=== PATIENT | female | born 1960 | race African-American/Black ===

== ENCOUNTER 2016-12-27 14:08 | Emergency (ER) | payer MEDICAID ==
[~2016-12-27] VITALS: Ht 167.6 cm; Wt 67.6 kg
[~2016-12-27 14:08] MED LIST: ADVAIR 100-501 EACH INH; ALBUTEROL SULF8.5 GM INH; AUGMENTIN 500M500 MG PO; AUGMENTIN 875-1 EAC1 ORAL; BENADRYL25 MG ORAL; CEPHALEXIN500 MG ORAL; CLARITIN-D 241 EACH PO; CORTIZONE 1028 GM TP; IBUPROFEN600 MG ORAL; LEVAQUIN500 MG ORAL; LEVAQUIN750 MG ORAL; NKM; NORCO 5-325 TA1 EACH ORAL; PREDNISONE20 MG ORAL; ZYRTEC-D TABLE1 EACH ORAL
--- NOTE | 2016-12-27 14:38 | Emergency Room Report ---
History of Present Illness General Chief Complaint: Pain Source: Patient Present Illness HPI Patient complains of possible sinusitis for 1 month. Associated symptoms includes sinus pressure, sinus pain, nasal congestion, and ear pain. States that he's taking Claritin D with some relief, but states that her symptoms have intensified over the past one week.States sxs are worse with bending forward and with changes in altitude. Denies any current n/v/f/c/d, abd pain, back pain , neck pain, photophobia, phonophobia, CP, SOB or headache. Allergies: Coded Allergies: IOPAMIDOL (Verified Allergy, Intermediate, facial rash, 08/24/16) Isovue 300, 100ml received for CT on 08/19/16 Patient History Past Medical History: see triage record Pertinent Family History: none Immunizations: UTD Reviewed Nursing Documentation: PMH: Agreed, PSxH: Agreed Nursing Documentation-PMH Past Medical History: No Stated History Hx Asthma: Yes - bronchitis Hx COPD: No Review of Systems All Other Systems: negative except mentioned in HPI Physical Exam Vital Signs Date Time Temp Pulse Resp B/P Pulse Ox O2 Delivery O2 Flow Rate FiO2 12/27/16 14:25 97.9 92 16 129/89 97 Room Air Sp02 EP Interpretation: reviewed, normal General Appearance: no apparent distress, alert, GCS 15, non-toxic Head: normocephalic, atraumatic Eyes: bilateral eye PERRL, bilateral eye normal inspection ENT: hearing grossly normal, normal pharynx, no angioedema, normal voice, TMs + canals normal, other - + Facial tenderness to percussion, Turbinates boggy and swollen Neck: full range of motion, supple/symm/no masses Respiratory: chest non-tender, lungs clear, normal breath sounds, speaking full sentences Cardiovascular #1: regular rate, rhythm, no edema Neurologic: alert, oriented x3, responsive, motor strength/tone normal, sensory intact, speech normal Psychiatric: judgement/insight normal, memory normal, mood/affect normal, no suicidal/homicidal ideation Skin: normal color, no rash, warm/dry, well hydrated Lymphatic: no adenopathy Medical Decision Making PA Attestation Dr. Antonio is my supervising physician with whom patient management has been discussed with. Diagnostic Impression: Primary Impression: Sinusitis Qualified Codes: J01.01 - Acute recurrent maxillary sinusitis ER Course Pt. presents to the ED c/o of Sinus congestion Ddx considered but are not limited to allergies, sinusitis, bronchitis, pneumonia, viral upper respiratory tract infection Vital signs: are WNL, pt. is afebrile H&PE are most consistent with Sinusitis ORDERS: none required at this time, the diagnosis is clinical ED INTERVENTIONS: None required at this time. DISCHARGE: At this time pt. is stable for d/c to home. Will provide printed patient care instructions, and any necessary prescriptions. Care plan and follow up instructions have been discussed with the patient prior to discharge. Last Vital Signs Date Time Temp Pulse Resp B/P Pulse Ox O2 Delivery O2 Flow Rate FiO2 12/27/16 14:25 97.9 92 16 129/89 97 Room Air Disposition: HOME, SELF-CARE Condition: Stable Scripts Fluticasone Propionate (Flonase Allergy Relief) 9.9 Ml Lasara.susp 2 SPRAYS NS DAILY for 7 Days, #10 ML Prov: SABRY,TAMEEM P.A. 12/27/16 Cetirizine Hcl* (ZYRTEC*) 10 Mg Tablet 10 MG ORAL DAILY, #14 TAB 0 Refills Prov: SABRY,TAMEEM P.A. 12/27/16 Prednisone* (PREDNISONE*) 20 Mg Tablet 40 MG ORAL DAILY, #5 TAB Prov: SABRY,TAMEEM P.A. 12/27/16 Amoxicillin/Potassium Clav 875-125* (AUGMENTIN 875-125 TABLET*) 1 Each Tablet 1 TAB ORAL TWICE A DAY, #20 TAB Prov: SABRY,TAMEEM P.A. 12/27/16 Patient Instructions: Sinusitis, Adult Additional Instructions: Take medication as directed. Patient advised that most of the time, symptoms start to improve in 7 to 10 days. Patient should return to clinic if their symptoms last more than 10 days, or if your symptoms get better at first but then get worse. Patient instructed to take an [id number] pain reliever to reduce the pain, and to rinse your nose and sinuses with salt water a few times a day. Patient advised to NOT take an antihistamine for sinusitis. Go to the ER if you experience any: fever higher than 102.5, sudden and severe pain in the face and head, trouble seeing or seeing double, trouble thinking clearly, swelling or redness around one or both eyes, or trouble breathing or a stiff neck. JOHN REED Dec 27, 2016 14:38
[2016-12-27 14:40] VITALS: BP 129/89
[2016-12-27] MEDS ORDERED: FLONASE ALLERG9.9 ML NS (14:40)
[2016-12-27] MEDS ORDERED: ZYRTEC10 MG ORAL (14:40)
[2016-12-27] MEDS ORDERED: PREDNISONE20 MG ORAL (14:40)
[2016-12-27] MEDS ORDERED: AUGMENTIN 875-1 EAC1 ORAL (14:40)
[2016-12-27 14:50] VITALS: BP 129/89
== END 2016-12-27 14:50 | disposition home or self-care (01) ==
LOC: EMR 14:48
DX: J01.01 Acute recurrent maxillary sinusitis (principal); Z88.8 Allergy status to other drugs, medicaments and biological substances
CPT/HCPCS: 99284

== ENCOUNTER 2017-03-16 15:21 | Emergency (ER) | payer MEDICAID ==
[~2017-03-16] VITALS: Ht 170.2 cm; Wt 71.7 kg
[~2017-03-16 15:21] MED LIST changes: +FLONASE ALLERG9.9 ML NS; +ZYRTEC10 MG ORAL
[2017-03-16] MEDS ORDERED: Ipratropium 0.02% Inh Soln 2.5ml UD HHN ONE (15:45)
[2017-03-16] MEDS ORDERED: PredniSONE 20mg tab ORAL ONE (15:45)
[2017-03-16] MEDS ORDERED: Albuterol ud Inhalation HHN ONE (15:45)
[2017-03-16 16:00] VITALS: BP 143/84
--- NOTE | 2017-03-16 16:14 | Diagnostic Imaging Report ---
Indication: Chest Pain Comparison: 9612 A single view chest radiograph was obtained. Findings: Cardiomediastinal appearance is within normal limits for age. Pulmonary vascularity is appropriate. The diaphragmatic contour is smooth and costophrenic angles are sharp. No pleural effusions are identified. The bones are osteopenic. Impression: No acute findings
[2017-03-16] MEDS ORDERED: PREDNISONE20 MG ORAL (16:25)
[2017-03-16] MEDS ORDERED: ALBUTEROL SULF8.5 GM INH (16:25)
[2017-03-16 16:32] VITALS: BP 143/84
--- NOTE | 2017-03-16 17:26 | Emergency Room Report ---
History of Present Illness General Chief Complaint: Dyspnea/Respdistress Source: Patient Present Illness HPI 56-year-old female presents ED complaining of shortness of breath and wheezing x2 weeks. Patient states that she was recent diagnosed with adult asthma. Patient states she does not have an inhaler. Denies any fevers or chills. Denies cough. Denies chest pain. Ice to contacts or recent travel. No other relieving factors. Denies any other associated symptoms Allergies: Coded Allergies: IOPAMIDOL (Verified Allergy, Intermediate, facial rash, 08/24/16) Isovue 300, 100ml received for CT on 08/19/16 Patient History Past Medical History: asthma Past Surgical History: none Pertinent Family History: none Social History: Denies: alcohol use, drug use, smoking Last Menstrual Period: na Now: No Immunizations: UTD Reviewed Nursing Documentation: PMH: Agreed, PSxH: Agreed Nursing Documentation-PMH Past Medical History: No History, Except For Hx Asthma: Yes - bronchitis Hx COPD: No Review of Systems All Other Systems: negative except mentioned in HPI Physical Exam Vital Signs Date Time Temp Pulse Resp B/P Pulse Ox O2 Delivery O2 Flow Rate FiO2 03/16/17 15:24 97.9 86 18 132/92 98 Room Air Sp02 EP Interpretation: reviewed, normal General Appearance: no apparent distress, alert, GCS 15, non-toxic Head: normocephalic, atraumatic Eyes: bilateral eye PERRL, bilateral eye normal inspection ENT: hearing grossly normal, normal pharynx, no angioedema, normal voice Neck: full range of motion, supple/symm/no masses Respiratory: chest non-tender, normal breath sounds, speaking full sentences, wheezing Cardiovascular #1: regular rate, rhythm, no edema Cardiovascular #2: 2+ carotid (R), 2+ carotid (L), 2+ radial (R), 2+ radial (L) , 2+ dorsalis pedis (R), 2+ dorsalis pedis (L) Gastrointestinal: normal bowel sounds, non tender, soft, non-distended, no guarding, no rebound Rectal: deferred Genitourinary: normal inspection, no CVA tenderness Musculoskeletal: back normal, gait/station normal, normal range of motion, non- tender Neurologic: alert, oriented x3, responsive, motor strength/tone normal, sensory intact, speech normal Psychiatric: judgement/insight normal, memory normal, mood/affect normal, no suicidal/homicidal ideation Reflexes: 3+ bicep (R), 3+ bicep (L), 3+ tricep (R), 3+ tricep (L), 3+ knee (R) , 3+ knee (L) Skin: normal color, no rash, warm/dry, well hydrated Lymphatic: no adenopathy Medical Decision Making Diagnostic Impression: Primary Impression: Asthma exacerbation ER Course Hospital Course 56-year-old female presents to ED complaining of wheezing. Differential diagnoses include: URI, bronchitis, asthma/COPD, pneumonia Clinical course Patient placed on stretcher. After initial history and physical I ordered CXR and nebulizer treatment. Chest x-ray unremarkable Upon reassessment patient states wheezing has improved Diagnosis - asthma exacerbation Stable and discharged home with prescriptions for Rx prednisone, albuterol. Instructed to followup with PMD. Return to ED if symptoms recur or worsen Chest X-Ray Diagnostic Results EP Interpretation: No Findings: no consolidation, no effusion, no pneumothorax, no acute cardiopulmonary disease Number of Views: 1 Last Vital Signs Date Time Temp Pulse Resp B/P Pulse Ox O2 Delivery O2 Flow Rate FiO2 03/16/17 16:10 81 20 100 Room Air 03/16/17 16:00 143/84 03/16/17 15:24 97.9 Status: improved Disposition: HOME, SELF-CARE Condition: Stable Scripts Albuterol Sulfate* (ALBUTEROL SULFATE MDI*) 8.5 Gm Hfa.aer.ad 2 PUFF INH Q4H, #1 INH 0 Refills Prov: AIDA KELLEY M.D. 03/16/17 Prednisone* (PREDNISONE*) 20 Mg Tablet 40 MG ORAL DAILY, #10 TAB Prov: AIDA KELLEY M.D. 03/16/17 Referrals: [facility] (PCP) Patient Instructions: Asthma, Adult AIDA KELLEY M.D. Mar 16, 2017 17:26
== END 2017-03-16 16:32 | disposition home or self-care (01) ==
LOC: EMR 16:01
DX: J45.901 Unspecified asthma with (acute) exacerbation (principal); Z88.8 Allergy status to other drugs, medicaments and biological substances
CPT/HCPCS: 71010; 94640; 99284

== ENCOUNTER 2017-05-31 12:34 | Emergency (ER) | payer MEDICAID ==
[~2017-05-31] VITALS: Ht 170.2 cm; Wt 68.0 kg
[2017-05-31] MEDS ORDERED: ALBUTEROL SULF8.5 GM INH (13:41)
[2017-05-31] MEDS ORDERED: PREDNISONE20 MG ORAL (13:41)
--- NOTE | 2017-05-31 13:44 | Emergency Room Report ---
History of Present Illness General Chief Complaint: Upper Respiratory Illness Source: Patient Present Illness HPI 56YOF with "1 month of chest tightness." Home MDI not working. Not currently on steroids. C/o productive cough Denies fever/chills, SOB, chest pain, abd pain, headache Also on Advair Allergies: Coded Allergies: No Known Allergies (Unverified , 05/31/17) Patient History Past Medical History: asthma Past Surgical History: none Pertinent Family History: none Social History: Denies: alcohol use, drug use, smoking Last Menstrual Period: na Now: No Immunizations: UTD Reviewed Nursing Documentation: PMH: Agreed, PSxH: Agreed Nursing Documentation-PMH Past Medical History: No History, Except For Hx Asthma: Yes Hx COPD: No Review of Systems All Other Systems: negative except mentioned in HPI Physical Exam Vital Signs Date Time Temp Pulse Resp B/P Pulse Ox O2 Delivery O2 Flow Rate FiO2 05/31/17 12:50 98.1 91 20 126/73 95 Room Air Sp02 EP Interpretation: reviewed, normal General Appearance: normal inspection, well appearing, no apparent distress, alert, GCS 15, non-toxic Head: normocephalic, atraumatic Eyes: bilateral eye EOMI, bilateral eye PERRL ENT: normal ENT inspection, hearing grossly normal, normal voice Neck: normal inspection, full range of motion, supple, no bony tend Respiratory: normal inspection, no rhonchi, no respiratory distress, no retraction, no accessory muscle use, speaking full sentences, expiration Cardiovascular #1: regular rate, rhythm, no edema Gastrointestinal: normal inspection, normal bowel sounds, non tender, soft, no guarding, no hernia Genitourinary: no CVA tenderness Musculoskeletal: normal inspection, back normal, normal range of motion, Harish' s Sign negative Neurologic: normal inspection, alert, oriented x3, responsive, sports broadcaster III-XII nml as tested, motor strength/tone normal, speech normal Psychiatric: normal inspection, judgement/insight normal, mood/affect normal Skin: normal inspection, normal color, no rash Medical Decision Making Diagnostic Impression: Primary Impression: Asthma exacerbation ER Course 56YOF with acute asthma exacerbation VSS. Afebrile CXR: negative for PNA Gave nebs, prednisone here Rx MDI refilled, prednisone PMD followup [place] home Chest X-Ray Diagnostic Results Chest X-Ray Diagnostic Results : Chest X-Ray Ordered: Yes # of Views/Limited/Complete: 1 View Indication: Shortness of Breath EP Interpretation: Yes Interpretation: no consolidation, no effusion, no pneumothorax, no acute cardiopulmonary disease Impression: No acute disease Interpreting ER Provider: Dr Osmani Pulido MD Last Vital Signs Date Time Temp Pulse Resp B/P Pulse Ox O2 Delivery O2 Flow Rate FiO2 05/31/17 12:50 98.1 91 20 126/73 95 Room Air Status: improved Disposition: HOME, SELF-CARE Condition: Improved Scripts Prednisone* (PREDNISONE*) 20 Mg Tablet 20 MG ORAL BID, #6 TAB 0 Refills Prov: OSMANI PULIDO M.D. 05/31/17 Albuterol Sulfate* (ALBUTEROL SULFATE MDI*) 8.5 Gm Hfa.aer.ad 2 PUFF INH Q4H, #1 INH Take 2 puffs every 4 to 6 hours as needed for wheezing or shortness of breath. Prov: OSMANI PULIDO M.D. 05/31/17 Referrals: [facility] (PCP) Patient Instructions: Asthma, Adult, [id number] OSMANI PULIDO M.D. May 31, 2017 13:44
[2017-05-31] MEDS ORDERED: Albuterol ud Inhalation HHN ONE (13:45)
[2017-05-31] MEDS ORDERED: PredniSONE 20mg tab ORAL ONE (13:45)
[2017-05-31 14:30] VITALS: BP 134/76
--- NOTE | 2017-05-31 14:41 | Diagnostic Imaging Report ---
Indication: Dyspnea Comparison: 03/16/17 A single view chest radiograph was obtained. Findings: Cardiomediastinal appearance is within normal limits for age. Pulmonary vascularity is appropriate. The diaphragmatic contour is smooth and costophrenic angles are sharp. No pleural effusions are identified. The bones are osteopenic. Impression: No acute findings
[2017-05-31 14:51] VITALS: BP 130/83
== END 2017-05-31 16:42 | disposition home or self-care (01) ==
LOC: EMR 13:08
DX: J45.901 Unspecified asthma with (acute) exacerbation (principal)
CPT/HCPCS: 71010; 94640; 94664; 99284

== ENCOUNTER 2017-07-09 12:08 | Emergency (ER) | payer MEDICAID ==
[~2017-07-09] VITALS: Ht 162.6 cm; Wt 63.5 kg
[2017-07-09 12:32] VITALS: BP 117/88
[2017-07-09] MEDS ORDERED: Ipratropium 0.02% Inh Soln 2.5ml UD HHN ONE (12:45)
[2017-07-09] MEDS ORDERED: Albuterol ud Inhalation HHN ONE (12:45)
--- NOTE | 2017-07-09 13:09 | Emergency Room Report ---
History of Present Illness General Chief Complaint: Flu Like Symptoms Source: Patient Present Illness [facility] The patient is a 56-year-old male presenting for cough. The patient was seen in this emergency department 2 weeks prior for the same complaint which has not been improving. She states that she has had this cough now for 6 weeks with no change. Pain is a 10 out of 10 dull ache to the head and chest which occurs with coughing. She has been using albuterol at home which has not been helping. She has not tried any other medications including cough medication. She denies any known sick contacts or recent travel. She admits to subjective fevers and chills She denies any other symptoms including nausea, vomiting, shortness of breath, abd pain, rash Allergies: Coded Allergies: No Known Allergies (Unverified , 05/31/17) Patient History Past Medical History: see triage record Pertinent Family History: none Reviewed Nursing Documentation: PMH: Agreed, PSxH: Agreed Nursing Documentation-PMH Hx Asthma: Yes Hx COPD: No Review of Systems All Other Systems: negative except mentioned in HPI Physical Exam Vital Signs Date Time Temp Pulse Resp B/P (MAP) Pulse Ox O2 Delivery O2 Flow Rate FiO2 07/09/17 12:27 98.2 87 20 117/88 99 Room Air Sp02 EP Interpretation: reviewed, normal General Appearance: no apparent distress, alert, GCS 15, non-toxic Head: normocephalic, atraumatic Eyes: bilateral eye normal inspection, bilateral eye PERRL ENT: hearing grossly normal, normal pharynx, no angioedema, normal voice Neck: full range of motion, supple/symm/no masses Respiratory: chest non-tender, lungs clear, no respiratory distress, no accessory muscle use, speaking full sentences, wheezing - diffuse Cardiovascular #1: regular rate, rhythm, no edema Genitourinary: normal inspection, no CVA tenderness Musculoskeletal: back normal, gait/station normal, normal range of motion, non- tender Neurologic: alert, oriented x3, responsive, motor strength/tone normal, sensory intact, speech normal Psychiatric: judgement/insight normal, memory normal, mood/affect normal, no suicidal/homicidal ideation Skin: normal color, no rash, warm/dry, well hydrated Lymphatic: no adenopathy Medical Decision Making PA Attestation Dr. Antonio is my supervising physician. Patient management was discussed with my supervising physician Diagnostic Impression: Primary Impression: Atypical pneumonia ER Course The patient is a 56-year-old male presenting for cough. Differential diagnosis include but not limited to pharyngitis, sinusitis, AOM, bronchitis, PNA PE: afebrile. No tachypnea. No apparent distress. No TTP over maxillary or frontal sinuses. Lungs: diffuse wheezing. No accessory muscle use. No resp distress Heart: RRR, no abnormal heart sounds Ears: external auditory canal clear. Non erythematous. Bilat TM intact. Cone of light present bilat. No bulging of TM. No serous fluid seen. no nasal D/C Nor cervical lymphad No tonsillar exudate. Uvula midline.Oropharynx non erythematous CXR unremarkable Pt given breathing treatment with improvement of symptoms. Due to prolonged symptoms, patient will receive azithromycin, albuterol, prednisone, and cough medication. ER precautions given Chest X-Ray Diagnostic Results Chest X-Ray Diagnostic Results : Chest X-Ray Ordered: Yes # of Views/Limited/Complete: 1 View Indication: Other - cough EP Interpretation: Yes Interpretation: no consolidation, no effusion, no pneumothorax, no acute cardiopulmonary disease Impression: No acute disease Electronically Signed by: TYRONE Graves Scribe Text My and my SP's interpretation of the chest xrays are there is no consolidation, no effusion, no acute cardiopulmonary disease, no pneumothorax Last Vital Signs Date Time Temp Pulse Resp B/P (MAP) Pulse Ox O2 Delivery O2 Flow Rate FiO2 07/09/17 12:50 88 18 98 Room Air 07/09/17 12:32 98.2 117/88 Status: improved Disposition: HOME, SELF-CARE Condition: Improved Scripts Albuterol Sulfate* (PROAIR HFA*) 8.5 Gm Hfa.aer.ad 2 PUFFS INH Q6H, #8.5 GM 0 Refills Prov: TERZIANKEATON P.A. 07/09/17 Prednisone* (PREDNISONE*) 20 Mg Tablet 40 MG ORAL DAILY, #10 TAB Prov: TERZIANKEATON P.A. 07/09/17 Codeine/Promethazine Hcl* (PROMETHAZINE-CODEINE SYRUP*) 118 Ml Syrup 5 ML ORAL Q6H Y for For Cough, #118 ML 0 Refills Prov: TERZIANKEATON P.A. 07/09/17 Azithromycin* (ZITHROMAX*) 250 Mg Tablet 250 MG ORAL DAILY, #6 TAB 0 Refills Take two tables once daily for 1 day, then one tablet once daily for 4 days. Prov: KEATON VALLEJO 07/09/17 KEATON VALLEJO Jul 09, 2017 13:09
[2017-07-09] MEDS ORDERED: ZITHROMAX250 MG ORAL (13:28)
[2017-07-09] MEDS ORDERED: PROMETHAZINE-C118 M1 ORAL (13:28)
[2017-07-09] MEDS ORDERED: PROAIR HFA8.5 GM INH (13:28)
[2017-07-09] MEDS ORDERED: PREDNISONE20 MG ORAL (13:28)
--- NOTE | 2017-07-09 15:32 | Diagnostic Imaging Report ---
Indication: COUGH Technique: One view of the chest Comparison: 05/31/2017 Findings: Lungs and pleural spaces are clear. Heart size is normal. No significant change Impression: No acute process
== END 2017-07-09 13:39 | disposition home or self-care (01) ==
LOC: EMR 13:00
DX: J18.9 Pneumonia, unspecified organism (principal)
CPT/HCPCS: 71010; 94640; 94664; 99284

== ENCOUNTER 2017-09-20 12:02 | Emergency (ER) | payer MEDICAID ==
[~2017-09-20] VITALS: Ht 170.2 cm; Wt 70.3 kg
[~2017-09-20 12:02] MED LIST changes: +PROAIR HFA8.5 GM INH; +PROMETHAZINE-C118 M1 ORAL; +ZITHROMAX250 MG ORAL
[2017-09-20] MEDS ORDERED: Ipratropium 0.02% Inh Soln 2.5ml UD HHN ONE (12:15)
[2017-09-20] MEDS ORDERED: Albuterol ud Inhalation HHN ONE (12:15)
[2017-09-20 12:40] VITALS: BP 128/78
[2017-09-20] MEDS ORDERED: PREDNISONE20 MG ORAL (13:32)
[2017-09-20] MEDS ORDERED: PROAIR HFA8.5 GM INH (13:32)
[2017-09-20] MEDS ORDERED: ADVAIR 500-501 EACH INH (13:32)
[2017-09-20 13:38] VITALS: BP 118/64
--- NOTE | 2017-09-20 16:48 | Diagnostic Imaging Report ---
Indication: PAIN Technique: One view of the chest Comparison: Findings: Lungs and pleural spaces are clear. Heart size is normal. No significant interim change Impression: No acute process
--- NOTE | 2017-09-20 22:10 | Emergency Room Report ---
History of Present Illness General Chief Complaint: Upper Respiratory Illness Source: Patient Present Illness [facility] The patient is a 56-year-old female presenting for continued cough for the past 2 months. She was seen at another emergency department in July and diagnosed with bronchitis. She states that symptoms have persisted. She admits to a productive cough. She denies any recent travel or known sick contacts. She denies other symptoms including nausea, vomiting, hemoptysis, fever, chills, shortness of breath, CP Allergies: Coded Allergies: No Known Allergies (Unverified , 05/31/17) Patient History Past Medical History: see triage record Pertinent Family History: none Reviewed Nursing Documentation: PMH: Agreed, PSxH: Agreed Nursing Documentation-PMH Hx Asthma: Yes Hx COPD: No Review of Systems All Other Systems: negative except mentioned in HPI Physical Exam Vital Signs Date Time Temp Pulse Resp B/P (MAP) Pulse Ox O2 Delivery O2 Flow Rate FiO2 09/20/17 12:03 97.7 101 18 131/88 97 Room Air 09/20/17 13:01 21 Sp02 EP Interpretation: reviewed, normal General Appearance: no apparent distress, alert, GCS 15, non-toxic Head: normocephalic, atraumatic Eyes: bilateral eye normal inspection, bilateral eye PERRL ENT: hearing grossly normal, normal pharynx, no angioedema, normal voice Neck: full range of motion, supple/symm/no masses Respiratory: normal inspection, no respiratory distress, no retraction, no accessory muscle use, wheezing - bilat Cardiovascular #1: regular rate, rhythm, no edema Musculoskeletal: back normal, gait/station normal, normal range of motion, non- tender Neurologic: alert, oriented x3, responsive, motor strength/tone normal, sensory intact, speech normal Psychiatric: judgement/insight normal, memory normal, mood/affect normal, no suicidal/homicidal ideation Skin: normal color, no rash, warm/dry, well hydrated Medical Decision Making PA Attestation Dr. Barros is my supervising physician. Patient management was discussed with my supervising physician Diagnostic Impression: Primary Impression: Bronchitis ER Course The patient is a 56-year-old female presenting for continued cough for the past 2 months. Differential diagnosis include but not limited to pharyngitis, sinusitis, AOM, bronchitis, PNA PE: afebrile. No tachypnea. No apparent distress. No TTP over maxillary or frontal sinuses. Lungs: diffuse wheezing. No accessory muscle use. No resp distress Heart: RRR, no abnormal heart sounds Ears: external auditory canal clear. Non erythematous. Bilat TM intact. Cone of light present bilat. No bulging of TM. No serous fluid seen. no nasal D/C Nor cervical lymphad No tonsillar exudate. Uvula midline.Oropharynx non erythematous She is given breathing Tx and lung sounds have improved. The patient will be discharged home with a prescription for prednisone, advair, and albuterol. Chest X-Ray Diagnostic Results Chest X-Ray Diagnostic Results : Chest X-Ray Ordered: Yes # of Views/Limited/Complete: 1 View Indication: Other - cough EP Interpretation: Yes PA Xray: Interpretation reviewed, by supervising MD, and agrees with findings. Interpretation: no consolidation, no effusion, no pneumothorax, no acute cardiopulmonary disease Impression: No acute disease Electronically Signed by: Nadeem Vallejo PA-C Last Vital Signs Date Time Temp Pulse Resp B/P (MAP) Pulse Ox O2 Delivery O2 Flow Rate FiO2 09/20/17 13:38 66 18 118/64 100 Room Air 09/20/17 13:22 21 09/20/17 12:40 97.7 Status: improved Disposition: HOME, SELF-CARE Condition: Improved Scripts Prednisone* (PREDNISONE*) 20 Mg Tablet 40 MG ORAL DAILY, #10 TAB Prov: NADEEM VALLEJO P.A. 09/20/17 Albuterol Sulfate* (PROAIR HFA*) 8.5 Gm Hfa.aer.ad 2 PUFFS INH Q6H, #8.5 GM 0 Refills Prov: BARNEYANNADEEM P.A. 09/20/17 Fluticasone/Salmeterol (Advair 500-50 Diskus) 1 Each Blst.w.dev 1 PUFF INH EVERY 12 HOURS, #1 EA Prov: NADEEM VALLEJO P.A. 09/20/17 Patient Instructions: Asthma, Adult, Acute Bronchitis Additional Instructions: I discussed my findings with the patient. All questions and concerns have been answered. Treatment and medication compliance have been addressed. I advised the patient that they need to follow up with PMD in 3-5 days. Return to ED if pain remains or worsens, cough worsens or remains, you notice blood in your sputum, you notice wheezing, you experience a fever, or if needed for any reason. Patient verbalized understanding of discharge instructions. NADEEM VALLEJO Sep 20, 2017 22:10
== END 2017-09-20 13:38 | disposition home or self-care (01) ==
LOC: EMR 12:35
DX: J40 Bronchitis, not specified as acute or chronic (principal); J45.909 Unspecified asthma, uncomplicated
CPT/HCPCS: 71010; 94640; 94664; 99284

== ENCOUNTER 2018-06-12 11:19 | Emergency (ER) | payer MEDICAID ==
[~2018-06-12] VITALS: Ht 170.2 cm; Wt 68.0 kg
[~2018-06-12 11:19] MED LIST changes: +ADVAIR 500-501 EACH INH
[2018-06-12 11:27] VITALS: BP 133/85
[2018-06-12] MEDS ORDERED: Albuterol/Ipratropium 3ml neb HHN ONE (11:45)
[2018-06-12] MEDS ORDERED: PREDNISONE20 MG ORAL (12:35)
[2018-06-12 12:49] VITALS: BP 133/85
--- NOTE | 2018-06-12 15:42 | Emergency Room Report ---
History of Present Illness General Chief Complaint: Upper Respiratory Illness Source: Patient Present Illness Allergies: Coded Allergies: No Known Allergies (Unverified , 05/31/17) Patient History Now: No Nursing Documentation-[facility] Past Medical History: No History, Except For Hx Asthma: Yes Hx COPD: No Physical Exam Vital Signs Date Time Temp Pulse Resp B/P (MAP) Pulse Ox O2 Delivery O2 Flow Rate FiO2 06/12/18 11:22 97.3 112 20 133/85 93 Room Air 97.3 Medical Decision Making Diagnostic Impression: Primary Impression: Rhinitis Additional Impression: Lymphadenopathy Last Vital Signs Date Time Temp Pulse Resp B/P (MAP) Pulse Ox O2 Delivery O2 Flow Rate FiO2 06/12/18 12:49 97.3 16 133/85 100 Room Air 97.3 06/12/18 12:22 89 Status: improved Disposition: ELOPED Condition: Stable Scripts Prednisone* (PREDNISONE*) 20 Mg Tablet 40 MG ORAL DAILY, #10 TAB Prov: New Barros MD 06/12/18 Patient Instructions: Asthma, Adult, Allergic Rhinitis New Barros MD Jun 12, 2018 15:42
== END 2018-06-12 12:30 | disposition home or self-care (01) ==
LOC: EMR 12:21
DX: J06.9 Acute upper respiratory infection, unspecified (principal); Z53.21 Procedure and treatment not carried out due to patient leaving prior to being seen by health care provider
CPT/HCPCS: 94640; 94664; 99284; J7620